=== PATIENT | male | born 1980 | race Caucasian/White ===

== ENCOUNTER 2019-06-23 22:51 | Emergency (ER) | payer MEDICAID ==
[~2019-06-23] VITALS: Ht 188 cm; Wt 86.4 kg
[2019-06-23 23:28] VITALS: BP 131/89
--- NOTE | 2019-06-23 23:56 | NUR ---
DR. MOORE AT BEDSIDE ASSESSING PATIENT
[2019-06-24] MEDS ORDERED: CefTRIAXone 1000mg IM Kit (w/lidocaine diluent) IM ONE
[2019-06-24] MEDS ORDERED: SULF1TAB49 PO (00:01)
[2019-06-24] MEDS ORDERED: CEPH500C5 PO (00:01)
== END 2019-06-24 00:21 | disposition home or self-care (01) ==
LOC: ER 22:51
DX: L03.113 Cellulitis of right upper limb (principal); M25.421 Effusion, right elbow; M25.521 Pain in right elbow; F17.200 Nicotine dependence, unspecified, uncomplicated; Z79.2 Long term (current) use of antibiotics
CPT/HCPCS: 96372; 99283; J0696